=== PATIENT | female | born 1955 | race Caucasian/White ===

== ENCOUNTER 2018-05-20 10:10 | Emergency (ER) | payer OTHER ==
[~2018-05-20] VITALS: Ht 157.5 cm; Wt 67.0 kg
[2018-05-20 10:13] VITALS: Ht 157.5 cm; Wt 67.0 kg
[2018-05-20] MEDS ORDERED: ALBUTEROL 0.083% (NEB) 2.5 MG/3 ML AMP HHN STA (10:59)
[2018-05-20] MEDS ORDERED: DEXAMETHASONE 4 MG TAB PO ONE (11:00)
[2018-05-20] MEDS ORDERED: AZIT250T PO (13:00)
[2018-05-20] MEDS ORDERED: ALBU2.5V3 NEB (13:00)
[2018-05-20] MEDS ORDERED: D-ME473S2 PO (13:01)
--- NOTE | 2018-05-20 13:03 | ERD ---
ER Documentation Chief Complaint Chief Complaint pt is bib self with c/o cough for over a wk, HPI 63-year-old female presents with productive cough worsening over the last week. She feels possible wheezing at night. She has a nebulizer at home but no medications. She has a history of asthma. She has a nebulizer that she has from family. She denies chest pain, fevers, abdominal pain, vomiting. Patient has a history of hypertension. She was recently switched from amlodipine due to lower extremity swelling. She was prescribed an JIM receptor sahil but has yet to initiate it given the concern for side effect of cough and her current URI symptoms. She has not taken her amlodipine in a week. ROS All systems reviewed and are negative except as per history of present illness. Medications Home Meds Active Scripts Dextromethorphan Hb-Promethazine Hcl* (Promethazine DM* Syrup) 473 Ml Syrup, 5 ML PO Q6 PRN for COUGH for 5 Days, ML Prov:ALISHA MICHAELS MD 05/20/18 Azithromycin* (Zithromax*) 250 Mg Tablet, 250 MG PO .ZPACK DIRECTED, #6 TAB TAKE 500 MG (2 TABS) THE FIRST DAY THEN 250 MG (1 TAB) DAYS 2-5 Prov:ALISHA MICHAELS MD 05/20/18 Albuterol Sulfate* (Albuterol Sulfate* Neb) 0.083%-3 Ml Neb, 2.5 MG NEB Q4 PRN for SHORTNESS OF BREATH, #30 EA Prov:ALISHA MICHAELS MD 05/20/18 Allergies Allergies: Coded Allergies: aspirin (Verified Allergy, Unknown, 05/20/18) PMhx/Soc History of Surgery: Yes (ovary removal) Anesthesia Reaction: No Hx Respiratory Disorders: Yes (Bronchitis) Hx Alcohol Use: No Hx Substance Use: No Hx Tobacco Use: No Smoking Status: Never smoker FmHx Family History: No diabetes, No coronary disease, No other Physical Exam Vitals Vital Signs Date Temp Pulse Resp B/P (MAP) Pulse Ox O2 O2 Flow FiO2 Time Delivery Rate 05/20/18 74 18 96 21 11:16 05/20/18 98.1 92 16 185/69 100 10:13 (107) Physical Exam Const: No acute distress Head: Atraumatic Eyes: Normal Conjunctiva ENT: Normal External Ears, Nose and Mouth. Neck: Full range of motion. No meningismus. Resp: Clear to auscultation bilaterally. Rhonchi with increased expiratory phase. No rales or retractions. Cardio: Regular rate and rhythm, no murmurs Abd: Soft, non tender, non distended. Normal bowel sounds Skin: No petechiae or rashes Back: No midline or flank tenderness Ext: No cyanosis, or edema Neur: Awake and alert Psych: Normal Mood and Affect Results 24 hrs Current Medications Medications Dose Sig/Kevin Start Time Status Last (Trade) Ordered Route PRN Stop Time Admin Dose Reason Admin 8 mg ONCE ONCE 05/20/18 DC 05/20/18 Dexamethasone PO 11:00 11:33 (Decadron) 05/20/18 11:01 Albuterol 2.5 mg ONCE STAT 05/20/18 DC 05/20/18 (Proventil HHN 10:59 11:13 0.083% (Neb)) 05/20/18 11:01 Procedures/MDM Chest X-ray 1V Interpreted by me: Soft Tissue: No acute abnormalities Bones: No acute abnormalities Mediastinum/Cardiac Silhouette/Lungs: No acute abnormalities. Impression- normal 1 view chest x-ray Patient given Decadron 8 mg by mouth and albuterol treatment. Patient had clear lungs without rales or retractions on serial exam. Patient presents with worsening URI symptoms of productive cough for the last week. She was treated empirically with albuterol for her nebulizer, Zithromax, promethazine DM, p rimary care follow-up and return precautions. She has no evidence of hypoxemia, rest or distress, pneumonia. The patient was stable with no new complaints during the ER course. Clinically, there is no current evidence to suggest meningitis, sepsis, acute abdomen, pneumonia, stroke, acute coronary syndrome, pulmonary embolism, aortic dissection or any other emergent condition appearing to require further evaluation or hospitalization. Patient counseled regarding my diagnostic impression and care plan. Prior to discharge all questions answered. Pt agrees with treatment plan and understands strict return precautions. Pt is instructed to follow up with primary care provider within 24- 48 hours. Precautionary instructions provided including instructions to return to the ER if not improving or for any worsening or changing symptoms or concerns. Patient has elevated blood pressure. She agreed that she will continue amlodipine until her URI symptoms resolved and then switch to her JIM receptor saihl as prescribed. Patient has no current signs or symptoms suggest cardiac chest pain, endorgan damage, hypertensive emergency. Departure Diagnosis: Primary Impression: Cough Additional Impression: Hypertension Hypertension type: unspecified Qualified Codes: I10 - Essential (primary) hypertension Condition: Stable Patient Instructions: Bronchitis With Wheezing (Adult) Additional Instructions: X-ray read as normal. Recheck for new or worsening symptoms with primary care doctor. We will treat for wheezing and bronchitis. ALISHA MICHAELS MD May 20, 2018 13:03
[2018-05-20 13:12] VITALS: BP 197/96; PULSE 89; RESP 17
== END 2018-05-20 13:15 | disposition home or self-care (01) ==
LOC: FTE 10:10
DX: I10 Essential (primary) hypertension (principal)
CPT/HCPCS: 71045; 94664; Z7502; Z7610